=== PATIENT | female | born 1990 ===

== ENCOUNTER 2018-05-28 16:11 | Outpatient (CLI) | payer OTHER ==
[2018-05-28] MEDS ORDERED: PRENATAL FORMU1 EAC1 PO (19:32)
[2018-05-28] MEDS ORDERED: FOLIC ACID1 MG PO (19:33)
[2018-05-28] MEDS ORDERED: IRON325 MG PO (19:35)
[2018-05-29] MEDS ORDERED: NIFEDIPINE ER30 MG PO ×2 (14:58→14:59)
== END 2018-05-29 17:20 | disposition home or self-care (01) ==
LOC: OBS/DEL 16:11
DX: O60.03 Preterm labor without delivery, third trimester (principal); O26.893 Other specified pregnancy related conditions, third trimester; M54.5 Low back pain; Z34.03 Encounter for supervision of normal first pregnancy, third trimester

== ENCOUNTER 2018-06-27 04:11 | Inpatient (IN) | payer OTHER | END 2018-06-29 13:07 | disposition HB | DRG 775 | LOC: LDR 04:11 → O/R 09:42 → OB/GYN 10:55 | PROC: 10E0XZZ Delivery of Products of Conception, External Approach (ICD-10-PCS; principal; 2018-06-27) | PROC: 4A1HXCZ Monitoring of Products of Conception, Cardiac Rate, External Approach (ICD-10-PCS; 2018-06-27) | DX: O80 Encounter for full-term uncomplicated delivery (principal); Z3A.38 38 weeks gestation of pregnancy; Z37.0 Single live birth ==